=== PATIENT | female | born 1980 ===

== ENCOUNTER 2016-09-01 10:44 | Emergency (ER) | payer OTHER, SELFPAY ==
[2016-09-01 10:45] VITALS: BMI 23.8
[2016-09-01 11:14] VITALS: O2SAT 100
--- NOTE | 2016-09-01 13:43 | ED PDOC ---
HPI: General Adult Time Seen by Provider: 09/01/16 12:05 Chief Complaint (Nursing): Flu-like Symptoms Chief Complaint (Provider): Body aches, temp 100.7, cry cough x 5 days History Per: Patient History/Exam Limitations: no limitations Have you had recent travel within the past 21 days to any of the following countries: [place], [place], [place] or [place]?: No Severity: Moderate Additional Complaint(s): Pt states her Tmax 100.7 at home. No ear pain, mild sore throat. Past Medical History Reviewed: Historical Data, Nursing Documentation, Vital Signs Vital Signs: Last Vital Signs Temp 98.5 F 09/01/16 11:11 Pulse 83 09/01/16 11:11 Resp 18 09/01/16 11:11 BP 115/78 09/01/16 11:11 Pulse Ox 100 09/01/16 11:11 - Medical History PMH: Asthma - Surgical History Surgical History: Hernia Repair, - Family History Family History: States: Unknown Family Hx - Home Medications Home Medications: Ambulatory Orders Medication Instructions Recorded Azithromycin [Zithromax Z-Kp] 250 mg PO DAILY #1 packet 06/28/14 Guaifenesin/Pseudoephedrne HCl 1 tab PO BID #30 tab 06/28/14 [Mucinex D 600 mg-60 mg] Azithromycin [Zithromax Z-Kp] 250 mg PO DAILY #1 packet 11/21/14 Benzonatate [Tessalon Perles] 100 mg PO TID #30 sgl 11/21/14 Albuterol HFA [Ventolin HFA 90 2 puff IH [id number] #1 inh 04/07/16 mcg/actuation (8 g)] Prednisone 50 mg PO DAILY #3 tablet 04/07/16 - Allergies Allergies/Adverse Reactions: Allergies Allergy/AdvReac Type Severity Reaction Status Date / Time No Known Allergies Allergy Verified 09/01/16 11:11 Review of Systems ROS Statement: Except As Marked, All Systems Reviewed And Found Negative Respiratory: Positive for: Cough Physical Exam - Reviewed Nursing Documentation Reviewed: Yes Vital Signs Reviewed: Yes - Physical Exam Appears: Positive for: Well, Non-toxic, No Acute Distress Head Exam: Positive for: ATRAUMATIC, NORMAL INSPECTION, NORMOCEPHALIC Skin: Positive for: Normal Color, Warm, DRY Eye Exam: Positive for: Normal appearance ENT: Positive for: Normal ENT Inspection Neck: Positive for: Normal, Painless ROM Cardiovascular/Chest: Positive for: Regular Rate, Rhythm Respiratory: Positive for: Normal Breath Sounds. Negative for: Accessory Muscle Use, Respiratory Distress Back: Positive for: Normal Inspection Extremity: Positive for: Normal ROM. Negative for: Tenderness Neurologic/Psych: Positive for: Alert, Oriented - ECG O2 Sat by Pulse Oximetry: 100 Medical Decision Making Medical Decision Making: Discussed rest and lots of fluids. Disposition - Clinical Impression Clinical Impression: Influenza-like symptoms - Patient ED Disposition Is Patient to be Admitted: No Counseled Patient/Family Regarding: Diagnosis, Need For Followup - Disposition Referrals: [facility] [Outside] Disposition: Routine/Home Disposition Time: 13:42 Condition: GOOD Instructions: Viral Syndrome (ED)
[2016-09-01 13:55] VITALS: BP 112/66; PULSE 72; RESP 16; TEMP 98
== END 2016-09-01 13:54 | disposition home or self-care (01) ==
LOC: H.ER 10:44
DX: R05 Cough (principal); R50.9 Fever, unspecified

== ENCOUNTER 2016-10-10 09:50 | Emergency (ER) | payer OTHER ==
[2016-10-10 11:00] VITALS: BMI 23.9
--- NOTE | 2016-10-10 11:01 | ED PDOC ---
HPI: CCC, URI, Sore Throat Time Seen by Provider: 10/10/16 10:31 Chief Complaint (Provider): Ear pain History Per: Patient Additional Complaint(s): 36 yo female, no PMH, presents to ED for evaluation of FB sensation in left ear. Pt tried to remove object with her nail and felt something moving. Put oil in her ear, no relief.no pain. Past Medical History Reviewed: Nursing Documentation, Vital Signs - Medical History PMH: Asthma - Surgical History Surgical History: Hernia Repair, - Family History Family History: States: Unknown Family Hx - Living Arrangements Living Arrangements: With Family - Social History Current smoker - smoking cessation education provided: No Alcohol: None Drugs: Denies - Home Medications Home Medications: Ambulatory Orders Medication Instructions Recorded Azithromycin [Zithromax Z-Kp] 250 mg PO DAILY #1 packet 06/28/14 Guaifenesin/Pseudoephedrne HCl 1 tab PO BID #30 tab 06/28/14 [Mucinex D 600 mg-60 mg] Azithromycin [Zithromax Z-Kp] 250 mg PO DAILY #1 packet 11/21/14 Benzonatate [Tessalon Perles] 100 mg PO TID #30 sgl 11/21/14 Albuterol HFA [Ventolin HFA 90 2 puff IH [id number] #1 inh 04/07/16 mcg/actuation (8 g)] Prednisone 50 mg PO DAILY #3 tablet 04/07/16 Ciprofloxacin/Dexamethasone 1 drop OT BID #1 bottle 10/10/16 [Ciprodex 0.3%-0.1% 7.5 Ml] Ibuprofen [Motrin] 600 mg PO Q6 #20 tab 10/10/16 - Allergies Allergies/Adverse Reactions: Allergies Allergy/AdvReac Type Severity Reaction Status Date / Time No Known Allergies Allergy Verified 10/10/16 11:07 Review of Systems ROS Statement: Except As Marked, All Systems Reviewed And Found Negative ENT: Positive for: Ear Pain Physical Exam - Reviewed Nursing Documentation Reviewed: Yes Vital Signs Reviewed: Yes - Physical Exam Appears: Positive for: Well, Non-toxic, No Acute Distress Head Exam: Positive for: ATRAUMATIC, NORMAL INSPECTION, NORMOCEPHALIC Skin: Positive for: Normal Color, Warm, DRY Eye Exam: Positive for: EOMI, Normal appearance, PERRL ENT: Positive for: TM Is/Are ((+) FB in left ear) Neck: Positive for: Normal, Painless ROM Cardiovascular/Chest: Positive for: Regular Rate, Rhythm Respiratory: Positive for: CNT, Normal Breath Sounds Gastrointestinal/Abdominal: Positive for: Normal Exam, Bowel Sounds, Soft Back: Positive for: Normal Inspection Extremity: Positive for: Normal ROM Neurologic/Psych: Positive for: Alert, Oriented Medical Decision Making Medical Decision Making: FB removed, bug, by travel writer using irrigation, suction and cerumen loops. Pt tolerated Procedure well, given Motrin PO Disposition - Clinical Impression Clinical Impression: Foreign body in right ear - Patient ED Disposition Is Patient to be Admitted: No - Disposition Disposition: Routine/Home Disposition Time: 12:33 Condition: STABLE Prescriptions: Ciprofloxacin/Dexamethasone [Ciprodex 0.3%-0.1% 7.5 Ml] 1 drop OT BID #1 bottle Ibuprofen [Motrin] 600 mg PO Q6 #20 tab Instructions: Ear Foreign Body (ED)
[2016-10-10 12:47] VITALS: BP 114/61; PULSE 62; RESP 18; TEMP 98; O2SAT 100
== END 2016-10-10 12:51 | disposition home or self-care (01) ==
LOC: H.ER 09:50
DX: T16.1XXA Foreign body in right ear, initial encounter (principal); J45.909 Unspecified asthma, uncomplicated

== ENCOUNTER 2018-01-03 22:09 | Emergency (ER) | payer OTHER ==
[2018-01-03 22:10] VITALS: BMI 23.9
[2018-01-03] MEDS ORDERED: Naproxen 500 MG TAB PO ONE ×2 (23:35→23:45)
--- NOTE | 2018-01-03 23:39 | ED PDOC ---
Upper Extremity Pain/Injury Time Seen by Provider: 01/03/18 23:14 Chief Complaint (Nursing): Upper Extremity Problem/Injury Chief Complaint (Provider): right elbow injury History Per: Patient History/Exam Limitations: no limitations Onset/Duration Of Symptoms: Days (3 weeks) Current Symptoms Are (Timing): Still Present Elbow (Pic): 1 - Tenderness, Swelling, Pain Worse W/Movement Additional Complaint(s): 37 y/o female presents for evaluation of right elbow pain x 3 weeks. Patient states she tripped and banged elbow in to wall; since then noticed bruising and swelling but states pain worsened in the last 2 days. Patient states she cannot fully bend right arm due to pain. Denies numbness/weakness right upper extremity. Past Medical History Reviewed: Historical Data, Nursing Documentation, Vital Signs Vital Signs: Last Vital Signs Temp 98.7 F 01/03/18 22:20 Pulse 88 01/03/18 22:20 Resp 17 01/03/18 22:20 BP 110/59 L 01/03/18 22:20 Pulse Ox 97 01/03/18 22:20 - Medical History PMH: Asthma - Surgical History Surgical History: Hernia Repair, - Family History Family History: States: Unknown Family Hx - Living Arrangements Living Arrangements: With Family - Home Medications Home Medications: Ambulatory Orders Medication Instructions Recorded Azithromycin [Zithromax Z-Kp] 250 mg PO DAILY #1 packet 06/28/14 Guaifenesin/Pseudoephedrne HCl 1 tab PO BID #30 tab 06/28/14 [Mucinex D 600 mg-60 mg] Azithromycin [Zithromax Z-Kp] 250 mg PO DAILY #1 packet 11/21/14 Benzonatate [Tessalon Perles] 100 mg PO TID #30 sgl 11/21/14 Albuterol HFA [Ventolin HFA 90 2 puff IH [id number] #1 inh 04/07/16 mcg/actuation (8 g)] Prednisone 50 mg PO DAILY #3 tablet 04/07/16 Ciprofloxacin/Dexamethasone 1 drop OT BID #1 bottle 05/15/17 [Ciprodex 0.3%-0.1% 7.5 Ml] Ibuprofen [Motrin] 600 mg PO Q6 #20 tab 10/10/16 - Allergies Allergies/Adverse Reactions: Allergies Allergy/AdvReac Type Severity Reaction Status Date / Time No Known Allergies Allergy Verified 10/10/16 11:07 Review of Systems ROS Statement: Except As Marked, All Systems Reviewed And Found Negative Musculoskeletal: Positive for: Arm Pain Physical Exam - Reviewed Nursing Documentation Reviewed: Yes Vital Signs Reviewed: Yes - Physical Exam Appears: Positive for: Well, Non-toxic, No Acute Distress Pulses-Radial (L): 2+ Pulses-Radial (R): 2+ Extremity: Positive for: Tenderness (tenderness lateral aspect right elbow extending to lateral aspect right forearm), Capillary Refill (<2 sec b/l UE), Swelling (right lateral elbow). Negative for: Deformity Neurologic/Psych: Positive for: Alert, Oriented. Negative for: Motor/Sensory Deficits - ECG O2 Sat by Pulse Oximetry: 97 - Other Rad xray right elbow X-Ray: Viewed By Me (reviewed with ED attending) X-Ray Interpretation: no acute findings xray right forearm X-Ray: Viewed By Me X-Ray Interpretation: no acute findings - Progress ED Course And Treament: xrays, Naproxen Patient educated on findings, arm sling given Advised ice, elevation, NSAIDs PRN pain Follow up PMD/ortho (patient has appt at [facility] next week) Return precautions given Disposition - Clinical Impression Clinical Impression: Injury of right elbow - Patient ED Disposition Is Patient to be Admitted: No Counseled Patient/Family Regarding: Studies Performed, Diagnosis, Need For Followup - Disposition Referrals: [facility] [place] [Outside] Disposition: Routine/Home Disposition Time: 23:59 Condition: STABLE Instructions: Joint Pain, Contusion (DC)
[2018-01-04 00:16] VITALS: BP 110/60; PULSE 82; RESP 18; TEMP 98; O2SAT 98
--- NOTE | 2018-01-04 09:20 | RAD ---
Date of service: 01/03/2018 PROCEDURE: Radiographs of the right elbow. HISTORY: injury x 3 weeks COMPARISON: No prior. FINDINGS: BONES: Bone alignment and mineralization are normal. There is no acute displaced fracture or bone destruction. JOINTS: Normal. No osteoarthritis. SOFT TISSUES: Normal. JOINT EFFUSION: None. OTHER FINDINGS: None. IMPRESSION: No acute fracture or dislocation.
--- NOTE | 2018-01-04 09:50 | RAD ---
PROCEDURE: Radiographs of the Right Forearm HISTORY: injury, proximal pain COMPARISON: None available. TECHNIQUE: Frontal and lateral views obtained. FINDINGS: BONES: No fracture or destructive lesion. JOINT SPACES: Unremarkable. OTHER FINDINGS: None. IMPRESSION: Unremarkable radiographs of the right forearm.
== END 2018-01-04 00:16 | disposition home or self-care (01) ==
LOC: H.ER 22:09
DX: S59.901A Unspecified injury of right elbow, initial encounter (principal); W01.198A Fall on same level from slipping, tripping and stumbling with subsequent striking against other object, initial encounter; Y92.9 Unspecified place or not applicable

== ENCOUNTER 2018-10-25 13:35 | Emergency (ER) | payer SELFPAY ==
[2018-10-25 13:36] VITALS: BMI 23.9
[2018-10-25 13:43] VITALS: BP 112/71; PULSE 73; TEMP 98.2; O2SAT 98
[2018-10-25] MEDS ORDERED: Albuterol-Ipratrop 3 mg / 0.5 (3 ml) UD INH STA ×2 (14:02→14:04)
[2018-10-25] MEDS ORDERED: DiphenhydrAMINE 50 mg/ml Inj IVP STA (14:03)
[2018-10-25] MEDS ORDERED: DiphenhydrAMINE 50 mg/ml Inj ONE (14:14)
[2018-10-25] MEDS ORDERED: Albuterol-Ipratrop 3 mg / 0.5 (3 ml) UD ONE (15:35)
--- NOTE | 2018-10-25 15:55 | ED PDOC ---
HPI: Skin/Bite Injury Time Seen by Provider: 10/25/18 14:00 Chief Complaint (Nursing): Allergic Reaction Chief Complaint (Provider): Allergic Reaction History Per: Patient History/Exam Limitations: no limitations Onset/Duration Of Symptoms: Sudden Onset Current Symptoms Are (Timing): Still Present Quality Of Symptoms: Itching Additional Complaint(s): 38 year old female with history of asthma presents ot the ED with itchy skin on chest and face, lip swelling and chest tightness. Patient reports no known allergies. However, she states that she occasional has these symptoms after she eats sushi and peanuts. The patient reports eating peanuts before arrival. Denies previous workup, intubation and epinephrine. PMD: none provided Past Medical History Reviewed: Historical Data, Nursing Documentation, Vital Signs Vital Signs: Last Vital Signs Temp 98.2 F 10/25/18 13:43 Pulse 73 10/25/18 13:43 Resp BP 112/71 10/25/18 13:43 Pulse Ox 98 10/25/18 13:43 Primary Care Provider: FAMILY PROVIDER,NO - Medical History PMH: Asthma - Surgical History Surgical History: Hernia Repair, - Family History Family History: States: Unknown Family Hx - Home Medications Home Medications: Ambulatory Orders Medication Instructions Recorded Azithromycin [Zithromax Z-Kp] 250 mg PO DAILY #1 packet 06/28/14 Guaifenesin/Pseudoephedrne HCl 1 tab PO BID #30 tab 06/28/14 [Mucinex D 600 mg-60 mg] Azithromycin [Zithromax Z-Kp] 250 mg PO DAILY #1 packet 11/21/14 Benzonatate [Tessalon Perles] 100 mg PO TID #30 sgl 11/21/14 Albuterol HFA [Ventolin HFA 90 2 puff IH [id number] #1 inh 04/07/16 mcg/actuation (8 g)] Prednisone 50 mg PO DAILY #3 tablet 04/07/16 Ciprofloxacin/Dexamethasone 1 drop OT BID #1 bottle 10/10/16 [Ciprodex 0.3%-0.1% 7.5 Ml] Ibuprofen [Motrin] 600 mg PO Q6 #20 tab 10/10/16 Albuterol HFA [Ventolin HFA 90 2 puff IH [id number] #1 pump 10/25/18 mcg/actuation (8 g)] DiphenhydrAMINE [Benadryl] 50 mg PO Q6 #20 cap 10/25/18 Ranitidine HCl 150 mg PO DAILY #30 tablet 10/25/18 predniSONE [predniSONE Tab] 40 mg PO DAILY #8 tab 10/25/18 - Allergies Allergies/Adverse Reactions: Allergies Allergy/AdvReac Type Severity Reaction Status Date / Time No Known Allergies Allergy Verified 10/25/18 13:41 Review of Systems ROS Statement: Except As Marked, All Systems Reviewed And Found Negative ENT: Positive for: Other (lip swelling) Cardiovascular: Positive for: Chest Pain, Other (chest itchiness) Skin: Positive for: Rash Physical Exam - Reviewed Nursing Documentation Reviewed: Yes Vital Signs Reviewed: Yes - Physical Exam Appears: Positive for: No Acute Distress Head Exam: Positive for: ATRAUMATIC, NORMAL INSPECTION, NORMOCEPHALIC Skin: Positive for: Normal Color, Warm, Dry. Negative for: Rash (to torso or extremities) Eye Exam: Positive for: Normal appearance ENT: Positive for: Other (lips dry, oropharynx caked, patient swallowing secretions; no lip or tongue swelling). Negative for: Moist Mucous Membranes Neck: Positive for: Normal, Painless ROM, Supple Cardiovascular/Chest: Positive for: Regular Rate, Rhythm Respiratory: Positive for: CNT, Normal Breath Sounds Gastrointestinal/Abdominal: Positive for: Normal Exam, Soft Back: Positive for: Normal Inspection Extremity: Positive for: Normal ROM Neurological/Psych: Positive for: Awake, Alert, Normal Tone - ECG O2 Sat by Pulse Oximetry: 98 (RA) Pulse Ox Interpretation: Normal Medical Decision Making Medical Decision Makin:03 MDM: possible allergic reaction will give Benadryl, Solu-medrol, duonebs and Famotidine Reassess Scribe Attestation: Documented by Di Whiteside, acting as a scribe for Greer Guerrier MD. Provider Scribe Attestation: All medical record entries made by the Scribe were at my direction and personally dictated by me. I have reviewed the chart and agree that the record accurately reflects my personal performance of the history, physical exam, medical decision making, and the department course for this patient. I have also personally directed, reviewed, and agree with the discharge instructions and disposition. Disposition - Clinical Impression Clinical Impression: Asthma, Allergic reaction - Patient ED Disposition Is Patient to be Admitted: No - Disposition Disposition: Routine/Home Disposition Time: 15:00 Condition: IMPROVED Additional Instructions: Contact the psychiatric clinical nurse specialist for workup of potential allergy triggers. Follow up with primary medical doctor. [facility] [address], [address], [place], [place], [address] Prescriptions: Albuterol HFA [Ventolin HFA 90 mcg/actuation (8 g)] 2 puff IH [id number] #1 pump DiphenhydrAMINE [Benadryl] 50 mg PO Q6 #20 cap predniSONE [predniSONE Tab] 40 mg PO DAILY #8 tab Ranitidine HCl 150 mg PO DAILY #30 tablet Instructions: Asthma in Adults, Avoiding Asthma Triggers, Allergy Skin Testing Forms: [facility] (Chinese) Print Language: SLOVENIAN
--- NOTE | 2018-10-30 14:34 | CARD ---
APPROVED REPORT Date of service: 10/25/2018 EKG Measurement Heart [id number] <Conclusion> Normal sinus rhythm Normal ECG
== END 2018-10-25 18:56 | disposition home or self-care (01) ==
LOC: H.ER 13:35
DX: T78.40XA Allergy, unspecified, initial encounter (principal); J45.909 Unspecified asthma, uncomplicated; R07.89 Other chest pain; Z79.899 Other long term (current) drug therapy
CPT/HCPCS: 81025; 96374; 96375; 99283; J1200; J2930